=== PATIENT | male | born 2005 | race Caucasian/White ===

== ENCOUNTER 2023-07-31 04:22 | Emergency (ER) | payer SELFPAY ==
[~2023-07-31] VITALS: Ht 170.2 cm; Wt 54.4 kg
[2023-07-31 04:36] VITALS: BP 139/100; PULSE 88; RESP 16; TEMP 98.3; O2SAT 99
== END 2023-07-31 06:25 | disposition home or self-care (01) ==
LOC: MED 04:22
DX: Z02.89 Encounter for other administrative examinations (principal); V49.88XA Car occupant (driver) (passenger) injured in other specified transport accidents, initial encounter; Y93.89 Activity, other specified; Y92.89 Other specified places as the place of occurrence of the external cause; Y99.8 Other external cause status
CPT/HCPCS: 99283